=== PATIENT | male | born 1990 | race Caucasian/White ===

== ENCOUNTER 2019-11-25 15:33 | Emergency (ER) | payer OTHER ==
[~2019-11-25] VITALS: Ht 177.8 cm; Wt 72.6 kg
[2019-11-25] MEDS ORDERED: VENTOLIN HFA 1818 GM INH (17:18)
[2019-11-25] MEDS ORDERED: ZPAK PO (17:18)
[2019-11-25 17:28] VITALS: BP 130/92
== END 2019-11-25 17:29 | disposition home or self-care (01) ==
LOC: M.ERS 15:33
DX: J18.9 Pneumonia, unspecified organism (principal); Z20.828 Contact with and (suspected) exposure to other viral communicable diseases